=== PATIENT | female | born 1970 | race Caucasian/White ===

== ENCOUNTER 2016-06-14 13:35 | Emergency (ER) | payer BC ==
[2016-06-14 15:38] LABS: HEMOGLOBIN 12.6 gm/dl (12.3-15.3); RED BLOOD COUNT 4.23 M/UL (4.00-5.10); WHITE BLOOD COUNT 7.7 K/UL (4.5-11.0)
[2016-06-14 16:03] LABS: BUN/CREATININE RATIO 14 (0-10)
== END 2016-06-14 20:06 | disposition home or self-care (01) ==
LOC: ER1 13:35
PROVIDERS: Specialist/Technologist Athletic Trainer
DX: R10.811 Right upper quadrant abdominal tenderness (principal); R05 Cough; Z88.0 Allergy status to penicillin; Z98.1 Arthrodesis status; Z79.891 Long term (current) use of opiate analgesic; Z79.899 Other long term (current) drug therapy
CPT/HCPCS: 36415; 71010; 80053; 81001; 82550; 82553; 83874; 84439; 84443; 84484; 85025; 93005; 99285

== ENCOUNTER → 2021-05-03 | Outpatient (CLI) | payer BC ==
[~2021-05-03] MED LIST: IBUPROFEN600 MG PO; PRINIVIL20 MG PO; ZANAFLEX4 MG PO
== END ==
LOC: LBRF 16:09
DX: J35.01 Chronic tonsillitis (principal)
CPT/HCPCS: 87070; 87205